=== PATIENT | female | born 1950 | race Caucasian/White ===

== ENCOUNTER 2023-08-25 07:33 | Day surgery (SDC) | payer MEDICARE, SELFPAY ==
[2023-08-23 11:02] VITALS: BMI 29.3
--- NOTE | 2023-08-24 08:23 | HO.ANESPROP2 ---
Documented by User: Briana Calle NP 08/24/23 08:23 HPI - Anesthesia Eval Consult details Narrative: 73yo F for Colonoscopy Eliquis for afib PMFSH Past Medical History Medical History Hx: UTI (urinary tract infection) Hx of renal calculi A-fib CLL (chronic lymphocytic leukemia) Occipital neuralgia Anxiety Depression Hypercholesteremia HTN (hypertension) Surgical History Surgical History Hx of cholecystectomy Hx of appendectomy Hx of total knee replacement Hx of colonoscopy Hx of lithotripsy Hx of cystoscopy Social History Social History Patient Tobacco Use Status: Never used Tobacco Use of substances other than those prescribed or required for medical reasons: No Are you DNR?: No Advance Directives: No Advance Directives Information Provided: Yes Recently lost weight without trying: No Eating poorly because of decreased appetite: No Nutrition Risks: No Nutritional Risk Meds Allergies Allergy/AdvReac Type Severity Reaction Status Date / Time codeine Allergy Unknown Verified 08/23/23 11:12 Home Medications Medication Instructions Recorded Confirmed Last Taken Type amitriptyline 25 mg tablet 25 mg PO BEDTIME 08/23/23 08/23/23 Unknown History apixaban 5 mg tablet (Eliquis) 5 mg PO BID 08/23/23 08/23/23 Unknown History atenolol 25 mg tablet 25 mg PO BID 08/23/23 08/23/23 Unknown History atorvastatin 10 mg tablet 10 mg PO DAILY 08/23/23 08/23/23 Unknown History gabapentin 300 mg capsule 600 mg PO BEDTIME 08/23/23 08/23/23 Unknown History Exam Exam Date and Time: August 24, 2023822 Height,Weight and Vital Signs: Height 5 ft 7 in Weight 85.003 kg Assessment and Plan Assessment Anesthesia Assessment: Chart Reviewed Documented by User: Charito Macias MD 08/25/23 13:39 HPI - Anesthesia Eval Consult details Narrative: 73yo F for Colonoscopy Eliquis for afib. Last dose 08/21/23 [facility] Past Medical History Medical History Hx: UTI (urinary tract infection) Hx of renal calculi A-fib CLL (chronic lymphocytic leukemia) Occipital neuralgia Anxiety Depression Hypercholesteremia HTN (hypertension) Family History Family history of problems with anesthesia: No Surgical History Surgical History Hx of cholecystectomy Hx of appendectomy Hx of total knee replacement Hx of colonoscopy Hx of lithotripsy Hx of cystoscopy History of Problems with Anesthesia: No Social History Social History Patient Tobacco Use Status: Never used Tobacco Use of substances other than those prescribed or required for medical reasons: No Are you DNR?: No Advance Directives: No Advance Directives Information Provided: Yes Recently lost weight without trying: No Eating poorly because of decreased appetite: No Nutrition Risks: No Nutritional Risk Meds Allergies Allergy/AdvReac Type Severity Reaction Status Date / Time codeine Allergy Unknown Verified 08/23/23 11:12 Home Medications Medication Instructions Recorded Confirmed Last Taken Type amitriptyline 25 mg tablet 25 mg PO BEDTIME 08/23/23 08/23/23 Unknown History apixaban 5 mg tablet (Eliquis) 5 mg PO BID 08/23/23 08/23/23 Unknown History atenolol 25 mg tablet 25 mg PO BID 08/23/23 08/23/23 Unknown History atorvastatin 10 mg tablet 10 mg PO DAILY 08/23/23 08/23/23 Unknown History gabapentin 300 mg capsule 600 mg PO BEDTIME 08/23/23 08/23/23 Unknown History Exam Height,Weight and Vital Signs: Height 5 ft 7 in Weight 85.003 kg Vital Signs Temp Pulse Resp BP Pulse Ox O2 Del Method 08/25/23 08:12 97 F 88 18 129/74 96 Room Air Airway Mallampati Class: III TM Dist: >3cm Neck ROM: Full Loose/Missing/Broken Teeth: No (Crowns intact. Denies broken, loose, missing teeth) Heart: ?RRR Lungs: CTAB Assessment and Plan Assessment Anesthesia Assessment: Anesthesia Plan Discussed Final Anesthetic Review Family History of Problems with Anesthesia: No History of Problems with Anesthesia: No NPO: Yes ASA Class: III Final Preanesthetic Review: No Changes in Pt Med Stat, Meds/Allgs Chart Reviewed, Consent Obtained/Reviewed and Anes Risks/Benef Reviewed Patient Risk: Intermediate Procedure Risk: Low Assessment/Block/Sedation in SS: Assess/Block/Sedation-SS Anesthetic Plan Anesthetic Plan: MAC: Disposition: Standard PACU
[2023-08-25 07:56] VITALS: BMI 28.5; BMI 30.3
[2023-08-25 08:12] VITALS: BP 129/74; PULSE 88; RESP 18; TEMP 36.1; O2SAT 96
[2023-08-25] MEDS: Lactated Ringers 1,000 ML 100 ML IVCONT (08:37)
[2023-08-25 08:39] VITALS: BMI 30.8
[2023-08-25 09:46] VITALS: BP 104/38; PULSE 82; RESP 16; TEMP 36.6; O2SAT 95
--- NOTE | 2023-08-25 09:48 | P.BOP_ITS ---
Brief Operative Note Date of Service: 08/25/23 Pre-op diagnosis: Screening Post-op diagnosis: other (Polyp) Procedure: Colonoscopy to the cecum with hot snare polypectomy x 1 with placement of 2 Resolution clips Surgeon: Jeremy Webb MD Anesthesia: MAC Was an Back Tender Insulation Board used for this Procedure?: No Estimated blood loss (mL): 0 Pathology: other (A. Ascending colon polyp) Condition: stable Disposition: PACU
[2023-08-25 10:01] VITALS: BP 124/58; PULSE 77; RESP 18; O2SAT 95
[2023-08-25 10:14] VITALS: BP 128/66; PULSE 74; RESP 18; TEMP 36.7; O2SAT 96
--- NOTE | 2023-08-25 10:18 | OP_ITS ---
DATE OF SERVICE: 08/25/2023 SURGEON: Jeremy Webb MD INDICATIONS: The patient presents for evaluation of colorectal cancer screening, rare hematochezia and family history of colon cancer. Full consent has been obtained from her for this, including risks of bleeding and perforation. PREOPERATIVE DIAGNOSIS: POSTOPERATIVE DIAGNOSIS: PROCEDURE PERFORMED: Colonoscopy to cecum with hot snare polypectomy and placement of 2 resolution clips. ESTIMATED BLOOD LOSS: COMPLICATIONS: ANESTHESIA: Monitored anesthesia care. ASSISTANTS: SPECIMENS: PREOPERATIVE DIAGNOSES: Colorectal cancer screening, rare hematochezia, and family history of colon cancer. POSTOPERATIVE DIAGNOSES: Colorectal cancer screening, rare hematochezia, family history of colon cancer, colon polyp, diverticulosis, and internal hemorrhoids. DESCRIPTION OF PROCEDURE: The patient was placed in the left lateral decubitus position. The digital rectal exam revealed no abnormalities. The Olympus video pediatric colonoscope was entered into the rectum and advanced easily to the cecum. Once in the cecum I did identify normal-appearing cecal pouch with appendiceal orifice and a normal-appearing ileocecal valve. The entire cecum and ileocecal valve appeared normal. There was transillumination of light deep in the right lower quadrant. The scope was then slowly withdrawn assessing all mucosal surfaces carefully. Preparation was excellent. In the ascending colon, was a flat, but raised approximately 12 mm polypoid lesion, which was removed by hot snare polypectomy and recovered by suction. The polypectomy site appeared clean, without any sign of residual polyp nor bleeding. Two resolution clips were applied to the polypectomy site with good deployment and good hemostasis. I did not visualize any other polyps, colitis, nor angiodysplasia. There was a moderate amount of sigmoid diverticulosis. In the rectum, scope was retroflexed visualizing internal hemorrhoids, but no other pathology. The rectal mucosa appeared normal. The scope was straightened and withdrawn from the patient. She tolerated the procedure well and was returned to the recovery area in stable condition. IMPRESSION: 1. Colon polyp. 2. Diverticulosis. 3. Internal hemorrhoids. PLAN: Given her age and the relatively minimal finding, I do not think she will need any further screening colonoscopies. She was advised to resume her Eliquis in 48 hours. She will otherwise see me on a p.r.n. basis. MD MULUGETA Mathis/ELIANA / [id number]
== END 2023-08-25 10:52 | disposition home or self-care (01) ==
PROVIDERS: PCP Family Medicine; Visit Provider Internal Medicine
PROC: 0DJD8ZZ Inspection of Lower Intestinal Tract, Via Natural or Artificial Opening Endoscopic (ICD-10-PCS; CPT 45378; principal; 2023-08-25 08:30)
DX: Z12.11 Encounter for screening for malignant neoplasm of colon (principal); D12.2 Benign neoplasm of ascending colon; K57.30 Diverticulosis of large intestine without perforation or abscess without bleeding; K64.8 Other hemorrhoids; Z80.0 Family history of malignant neoplasm of digestive organs; R19.7 Diarrhea, unspecified; K92.1 Melena; I10 Essential (primary) hypertension; E78.00 Pure hypercholesterolemia, unspecified; C91.10 Chronic lymphocytic leukemia of B-cell type not having achieved remission; I48.91 Unspecified atrial fibrillation; Z87.440 Personal history of urinary (tract) infections; Z87.442 Personal history of urinary calculi; Z79.01 Long term (current) use of anticoagulants; Z79.899 Other long term (current) drug therapy
CPT/HCPCS: 45385; 88305; J2405